=== PATIENT | female | born 1950 | race Caucasian/White ===

== ENCOUNTER → 2019-11-27 | Outpatient (CLI) | payer MEDICARE | END | disposition home or self-care (01) | LOC: LAB SHORT 15:23 → PLD 15:23 | DX: R23.4 Changes in skin texture (principal); R68.89 Other general symptoms and signs; L57.8 Other skin changes due to chronic exposure to nonionizing radiation | CPT/HCPCS: 88305; 88313 ==

== ENCOUNTER → 2021-05-13 | Outpatient (CLI) | payer MEDICARE ==
[~2021-05-13] MED LIST: ASCO500 PO; ATOR20 PO; Acetaminophen650 M1 PO; Colace100 MG PO; ENAL10 PO; GABA600 PO; LANS30EC PO; MULTIPLE VITAM1 EACH PO; Norco 5-325 Ta1 EACH PO; Sanctura20 MG PO; TIZANIDINE HCL2 MG PO; VITAMIN D325 MC3 PO; VITAMIN E400 UNI1 PO; ZOCOR20 MG PO
[2021-05-13 16:28] LABS: Source, Urine Clean Catch
[2021-05-13 17:15] LABS: Appearance, Urine Hazy (Clear); Bacteria Few /hpf; Bilirubin, Urine Neg (Neg); Blood, Urine 1+ (Neg); Color, Urine Yellow (P-Yellow); Glucose Qualitative, Urine Neg (Normal); Ketones, Urine Neg (Neg); Leukocyte Esterase, Urine 2+ (Neg); Nitrite, Urine Neg (Neg); Protein, Urine Neg (Neg); Red Blood Cells, Urine 0-2 /hpf (0-2); Specific Gravity, Urine 1.015 (1.003-1.022); Squamous Epithelial Cells Many /hpf (Few); Urobilinogen, Urine NORM (Normal)
== END | disposition home or self-care (01) ==
LOC: LAB SHORT 16:25 → LAB 16:25
PROVIDERS: Family Medicine
DX: R31.9 Hematuria, unspecified (principal)
CPT/HCPCS: 81001; 87086

== ENCOUNTER 2022-02-17 10:01 | Day surgery (SDC) | payer MEDICARE ==
[~2022-02-17] VITALS: Ht 175.3 cm; Wt 156.3 kg
[2022-02-17] MEDS ORDERED: TETR250 (10:27)
[2022-02-17] MEDS ORDERED: TIZA4 (10:27)
== END 2022-02-17 12:23 | disposition home or self-care (01) ==
LOC: ORSCSDS 10:01
PROVIDERS: Internal Medicine Gastroenterology
PROC: 0DBK8ZX Excision of Ascending Colon, Via Natural or Artificial Opening Endoscopic, Diagnostic (ICD-10-PCS; principal; 2022-02-17 11:15)
PROC: 0DBL8ZX Excision of Transverse Colon, Via Natural or Artificial Opening Endoscopic, Diagnostic (ICD-10-PCS; principal; 2022-02-17 11:15)
DX: Z12.11 Encounter for screening for malignant neoplasm of colon (principal); Z86.010 Personal history of colon polyps; D12.2 Benign neoplasm of ascending colon; D12.3 Benign neoplasm of transverse colon; K57.30 Diverticulosis of large intestine without perforation or abscess without bleeding; K64.8 Other hemorrhoids; I10 Essential (primary) hypertension; E78.5 Hyperlipidemia, unspecified; E11.40 Type 2 diabetes mellitus with diabetic neuropathy, unspecified; Z79.84 Long term (current) use of oral hypoglycemic drugs; E66.01 Morbid (severe) obesity due to excess calories; Z68.42 Body mass index [BMI] 45.0-49.9, adult; Z79.899 Other long term (current) drug therapy; K21.9 Gastro-esophageal reflux disease without esophagitis
CPT/HCPCS: 82947; 88305; J2704

== ENCOUNTER → 2022-08-25 | Outpatient (CLI) | payer MEDICARE ==
[~2022-08-25] MED LIST changes: +TETR250; +TIZA4
== END | disposition home or self-care (01) ==
LOC: LAB SHORT 15:53
DX: R30.0 Dysuria (principal)
CPT/HCPCS: 87077; 87086; 87186

== ENCOUNTER → 2022-09-13 | Outpatient (CLI) | payer MEDICARE | LOC: LAB SHORT 11:20 | DX: R30.0 Dysuria (principal) | CPT/HCPCS: 87077; 87086; 87186 ==

== ENCOUNTER → 2022-12-18 | Outpatient (CLI) | payer MEDICARE | END | disposition home or self-care (01) | LOC: PLD 12:20 → LAB SHORT 12:20 | DX: L57.8 Other skin changes due to chronic exposure to nonionizing radiation (principal); L90.5 Scar conditions and fibrosis of skin | CPT/HCPCS: 88305 ==

== ENCOUNTER → 2023-05-25 | Outpatient (CLI) | payer MEDICARE | END | disposition home or self-care (01) | LOC: LAB SHORT 13:49 → LAB 13:49 | DX: N39.0 Urinary tract infection, site not specified (principal) | CPT/HCPCS: 87077; 87086; 87186 ==

== ENCOUNTER → 2023-07-24 | Outpatient (CLI) | payer MEDICARE | LOC: LAB 13:14 → LAB SHORT 13:14 | DX: N39.0 Urinary tract infection, site not specified (principal) | CPT/HCPCS: 87077; 87086; 87186 ==

== ENCOUNTER 2025-02-15 11:19 | Observation (INO) | payer MEDICARE ==
[~2025-02-15] VITALS: Ht 175.3 cm; Wt 146.9 kg
[~2025-02-15 11:19] MED LIST changes: +ELIQUIS2.5 MG; +FESOTERODINE FUM8 MG PO; +FISH OIL 1,0001 EA10; +METF500 PO
[2025-02-15 11:56] LABS: BASOPHILS ABSOLUTE AUTO 0.11 K/mm3 (0.00-0.23); BASOPHILS PERCENT AUTO 1 % (0-2); EOSINOPHILS ABSOLUTE AUTO 0.36 K/mm3 (0.00-0.68); EOSINOPHILS PERCENT AUTO 3 % (0-6); Hematocrit 43.3 % (33.0-51.0); Hemoglobin 14.7 g/dL (11.5-16.0); IMMATURE GRAN ABSOLUTE AUTO 0.06 K/mm3 (0.00-0.10); IMMATURE GRAN PERCENT AUTO 1 % (0-1); LYMPHOCYTES ABSOLUTE AUTO 3.03 K/mm3 (0.84-5.20); LYMPHOCYTES PERCENT AUTO 26 % (21-46); MONOCYTES ABSOLUTE AUTO 1.09 K/mm3 (0.16-1.47); MONOCYTES PERCENT AUTO 9 % (4-13); Mean Corpuscular HGB 30.9 pg (26.0-34.0); Mean Corpuscular HGB Conc 33.9 g/dL (31.5-36.5); Mean Corpuscular Volume 91 fL (80-100); Mean Platelet Volume 9.3 fL (9.1-12.4); NEUTROPHILS ABSOLUTE AUTO 7.13 K/mm3 (1.96-9.15); NEUTROPHILS PERCENT AUTO 61 % (41-73); Platelet Count 238 K/mm3 (150-400); RDW Coefficient Variation 13.3 % (11.7-14.2); RDW Standard Deviation 44.9 fL (35.1-46.3); Red Blood Cell Count 4.75 M/mm3 (3.80-5.20); White Blood Cell Count 11.78 K/mm3 (4.00-11.30)
[2025-02-15 12:11] LABS: Albumin, Blood 3.3 g/dL (3.4-5.0); Bilirubin, Total 0.9 mg/dL (0.1-1.0); Calcium, Blood 8.6 mg/dL (8.5-10.1); Creatinine, Blood 0.75 mg/dL (0.40-1.00); Globulin, Blood 3.4 g/dL (2.2-4.0); Potassium, Blood 4.5 mmol/L (3.5-5.5); Total Protein, Blood 6.7 g/dL (6.4-8.2)
[2025-02-15] MEDS ORDERED: Heparin Sodium,Porcine/0.5 NS 500 ML IV SCH (17:15)
[2025-02-15 17:26] LABS: Anti-Xa UFH, PHA Monitoring <0.10 IU/mL; International Normalized Ratio 1.04; Prothrombin Time Results 11.4 Sec (9.7-11.5)
[2025-02-15] MEDS ORDERED: Heparin Sodium 5000 Units/ML 1ML MDV IV ONE (17:30)
[2025-02-15] MEDS ORDERED: Nitrofurantoin/Nitrofuran Mac 100 MG Cap PO SCH (21:00)
[2025-02-15] MEDS ORDERED: Gabapentin 300 MG Cap PO SCH (21:00)
[2025-02-15] MEDS ORDERED: Insulin Human Lispro 100 Units/ML 3ML Syringe SC SCH (21:00)
[2025-02-16] MEDS ORDERED: Dose Adjust by Pharmacy XX STA ×2 (00:32→10:33)
[2025-02-16 00:35] VITALS: BP 131/80
[2025-02-16 04:52] VITALS: BP 117/57
[2025-02-16] MEDS ORDERED: KETO.5OPSO LEFTEYE (05:32)
[2025-02-16] MEDS ORDERED: OCUFLOX511 LEFTEYE (05:34)
[2025-02-16] MEDS ORDERED: REFRESH TEARS P10 ML LEFTEYE (05:36)
[2025-02-16] MEDS ORDERED: PRED FORTE5 M1 LEFTEYE (05:37)
[2025-02-16] MEDS ORDERED: PREDNISOLONE ACE5 ML RIGHTEYE (05:38)
[2025-02-16] MEDS ORDERED: Pantoprazole Sodium 40 MG Tab PO SCH (06:00)
--- NOTE | 2025-02-16 06:48 | NUR ---
PT STABLE THROUGHOUT THE SHIFT. PT TOLERATING HEPARIN INFUSION WELL, NO S/S BLEEDING/BRUISING. PT IS AOX4, SBA WITH WALKER. PT ABLE TO USE CALL LIGHT AND MAKE NEEDS KNOWN. PT DID REQUIRE 2L O2 WHILE SLEEPING TO MAINTAIN SATS ABOVE 93%. PT O2 SAT DID DROP TO 85% ON ROOM AIR WHILE SLEEPING BUT RECOVERED QUICKLY WHEN WOKEN. PT VITAL SIGNS WNL OTHERWISE. PT DID HAVE GOOD URINARY OUTPUT BUT DOES HAVE STRESS INCONTINENCE WITH URGENCY.
--- NOTE | 2025-02-16 06:56 | NUR ---
ADDITIONAL TO END OF SHIFT: PT DOES HAVE EXERTIONAL DYSPNEA BUT IS ABLE TO MAINTAIN SATS WELL ON ROOM AIR. PT RESPIRATORY EFFORT QUICKLY RECOVERS AT REST.
[2025-02-16 07:34] VITALS: BP 132/79
[2025-02-16] MEDS ORDERED: Enalapril Maleate 5 MG Tab PO SCH (09:00)
[2025-02-16] MEDS ORDERED: Atorvastatin 40 MG Tab PO SCH (09:00)
[2025-02-16 10:12] LABS: BASOPHILS ABSOLUTE AUTO 0.07 K/mm3 (0.00-0.23); BASOPHILS PERCENT AUTO 1 % (0-2); EOSINOPHILS ABSOLUTE AUTO 0.36 K/mm3 (0.00-0.68); EOSINOPHILS PERCENT AUTO 4 % (0-6); Hematocrit 41.9 % (33.0-51.0); Hemoglobin 13.9 g/dL (11.5-16.0); IMMATURE GRAN ABSOLUTE AUTO 0.06 K/mm3 (0.00-0.10); IMMATURE GRAN PERCENT AUTO 1 % (0-1); LYMPHOCYTES PERCENT AUTO 30 % (21-46); MONOCYTES ABSOLUTE AUTO 0.82 K/mm3 (0.16-1.47); MONOCYTES PERCENT AUTO 9 % (4-13); Mean Corpuscular HGB 30.5 pg (26.0-34.0); Mean Corpuscular HGB Conc 33.2 g/dL (31.5-36.5); Mean Corpuscular Volume 92 fL (80-100); Mean Platelet Volume 9.6 fL (9.1-12.4); NEUTROPHILS ABSOLUTE AUTO 5.18 K/mm3 (1.96-9.15); NEUTROPHILS PERCENT AUTO 56 % (41-73); Platelet Count 207 K/mm3 (150-400); RDW Coefficient Variation 13.5 % (11.7-14.2); RDW Standard Deviation 45.4 fL (35.1-46.3); Red Blood Cell Count 4.56 M/mm3 (3.80-5.20); White Blood Cell Count 9.29 K/mm3 (4.00-11.30)
[2025-02-16 10:42] LABS: Bun/Creatinine Ratio 18.8 (12.0-20.0); Calcium, Blood 8.7 mg/dL (8.5-10.1); Creatinine, Blood 0.69 mg/dL (0.40-1.00); Potassium, Blood 4.1 mmol/L (3.5-5.5)
[2025-02-16] MEDS ORDERED: Apixaban 5 MG Tab PO ONE (13:00)
[2025-02-16] MEDS ORDERED: ELIQUIS5 M9 PO (13:09)
[2025-02-16] MEDS ORDERED: NITR100CA PO (13:09)
[2025-02-16 13:22] VITALS: BP 113/70
--- NOTE | 2025-02-16 16:00 | NUR ---
SHIFT SUMMARY PATIENT AOX4 ABLE TO MAKE NEEDS KNOWN DENIES CHEST PAIN OR SOB. SBA IN THE ROOM TOLERATING HER MEALS. VITALS WERE STABLE. CARE PLAN AND DISCHARGE PLAN DISCUSSED WITH PATIENT AT BEDSIDE WITH HOSPIALIST. DISCHARGE INSTRUCTIONS INCLUDING MEDS AND FOLLOW UP INFO GIVEN TO PATIENT AND UNDERSTANDS ALL.
== END 2025-02-16 15:58 | disposition home or self-care (01) ==
LOC: ER 11:19 → ERHOLD 11:20 → PCU 11:20
PROVIDERS: Student in an Organized Health Care Education/Training Program; ADMIT Internal Medicine
DX: I26.99 Other pulmonary embolism without acute cor pulmonale (principal); N39.0 Urinary tract infection, site not specified; B96.89 Other specified bacterial agents as the cause of diseases classified elsewhere; K21.9 Gastro-esophageal reflux disease without esophagitis; E78.5 Hyperlipidemia, unspecified; I10 Essential (primary) hypertension; E11.9 Type 2 diabetes mellitus without complications; Z79.899 Other long term (current) drug therapy; Z88.8 Allergy status to other drugs, medicaments and biological substances; Z88.5 Allergy status to narcotic agent; Z79.84 Long term (current) use of oral hypoglycemic drugs
CPT/HCPCS: 36415; 71045; 71260; 80048; 80053; 82947; 83880; 84484; 85025; 85520; 85610; 85730; 93005; 93010; 93306; 93970; 96365; 96365-59; 96366; 96366-59; 96376; 99285-25; A9270; G0378; J1644; Q9967

== ENCOUNTER → 2025-03-23 | Outpatient (CLI) | payer MEDICARE ==
[~2025-03-23] MED LIST changes: +ELIQUIS5 M9 PO; +KETO.5OPSO LEFTEYE; +NITR100CA PO; +OCUFLOX511 LEFTEYE; +PRED FORTE5 M1 LEFTEYE; +PREDNISOLONE ACE5 ML RIGHTEYE; +REFRESH TEARS P10 ML LEFTEYE
== END | disposition home or self-care (01) ==
LOC: LAB 12:00 → LAB SHORT 12:00
DX: N39.0 Urinary tract infection, site not specified (principal)
CPT/HCPCS: 87077; 87086; 87186

== ENCOUNTER 2025-04-08 12:39 | Emergency (ER) | payer MEDICARE ==
[~2025-04-08] VITALS: Ht 175.3 cm; Wt 145.2 kg
[2025-04-08 13:26] VITALS: BP 136/96
[2025-04-08] MEDS ORDERED: HYDR1TAB94 PO (14:25)
== END 2025-04-08 14:30 | disposition home or self-care (01) ==
LOC: ER 12:39
DX: S80.02XA Contusion of left knee, initial encounter (principal); X58.XXXA Exposure to other specified factors, initial encounter
CPT/HCPCS: 99283

== ENCOUNTER → 2025-06-17 | Outpatient (CLI) | payer MEDICARE ==
[~2025-06-17] MED LIST changes: +HYDR1TAB94 PO
[2025-06-17 11:53] LABS: Source, Urine Clean Catch
[2025-06-17 13:42] LABS: Bilirubin, Urine Neg (Neg); Color, Urine Yellow (P-Yellow); Glucose Qualitative, Urine Neg (Neg); Ketones, Urine Neg (Neg); Leukocyte Esterase, Urine 3+ (Neg); Protein, Urine 2+ (Neg); Specific Gravity, Urine 1.020 (1.003-1.022); Urobilinogen, Urine NORM (Normal)
[2025-06-17 14:02] LABS: White Blood Cells, Urine TNTC /hpf (0-5)
== END ==
LOC: LAB 11:52 → LAB SHORT 11:52 → LAB FUT 06-15 14:55 → EDSTATUS 06-15 14:55
PROVIDERS: Urology Female Pelvic Medicine and Reconstructive Surgery
DX: N39.0 Urinary tract infection, site not specified (principal)
CPT/HCPCS: 81001; 87077; 87086; 87186